=== PATIENT | male | born 1990 | race African-American/Black ===

== ENCOUNTER 2021-08-09 08:37 | Emergency (ER) | payer OTHER ==
[~2021-08-09] VITALS: Ht 172.7 cm; Wt 91.2 kg
[2021-08-09 08:38] VITALS: BP 135/73
--- NOTE | 2021-08-09 08:42 | NUR ---
Patient ambulated to bed 4.
--- NOTE | 2021-08-09 08:49 | NUR ---
dr. miner bedside evaluating pt
--- NOTE | 2021-08-09 08:49 | NUR ---
Dr. Bell at bedside to exam patient.
[2021-08-09] MEDS ORDERED: KETOROLAC 30 MG/ML VIAL IVP ONE (08:55)
[2021-08-09] MEDS ORDERED: NACL 0.9% 1,000 ML IV ONE (08:55)
--- NOTE | 2021-08-09 08:55 | NUR ---
30 Y/O MALE BIB SELF C/O MID ABD PAIN, DIARRHEA X YESTERDAY. PT STATES PAIN IS RATED 10/10. PT DENIES AGGREVATING OR ALLEVIATING FACTORS. ABDOMEN TENDER TO PALPITATION. PT DENIES NAUSEA,VOMITING, CONSTIPATION, DYSURIA, FEVER OR CHILLS. PRIOR TO ARRIVAL PT TOOK PEPTO BISMOL WITH NO SYMPTOMATIC PAIN RELIEF. PT IS ALERT AND ORIENTED X4. BED IN LOWEST POSITION. BED RAIL X1. PMH: DENIES NKA
[2021-08-09] MEDS ORDERED: LOPERAMIDE 2 MG CAP PO ONE (09:05)
[2021-08-09] MEDS ORDERED: IBUP-2213 PO (09:25)
[2021-08-09] MEDS ORDERED: LOPE-289 PO (09:25)
[2021-08-09 09:43] VITALS: BP 135/73
--- NOTE | 2021-08-09 09:43 | NUR ---
Patient discharged with v/s stable. Written and verbal after care instructions given and explained. Patient alert, oriented and verbalized understanding of instructions. Ambulatory with steady gait. All questions addressed prior to discharge. ID band removed. Patient advised to follow up with PMD. Rx of IBUPROFEN,IMODIUM given. Patient educated on indication of medication including possible reaction and side effects. Opportunity to ask questions provided and answered.
[2021-08-09] MEDS ORDERED: ACET-8386 PO (09:59)
== END 2021-08-09 09:43 | disposition home or self-care (01) ==
LOC: MED 08:37
DX: R10.13 Epigastric pain (principal); R19.7 Diarrhea, unspecified
CPT/HCPCS: 96361; 96374; 99283; J1885; J7030